=== PATIENT | female | born 1935 | race Caucasian/White ===

== ENCOUNTER 2022-05-15 02:35 | Inpatient (IN) | payer MEDICARE, OTHER ==
[2022-05-15] MEDS ORDERED: Ondansetron PF 4 MG/2 ML Vial ONE (02:47)
[2022-05-15] MEDS ORDERED: Morphine 4 MG/ML VIAL ONE (02:47)
[2022-05-15 03:20] LABS: #Eosinphils 0.1 thou/uL (0.0-0.7); #Lymphocytes 1.6 thou/uL (1.20-3.40); #Monocytes 0.9 thou/uL (0.11-0.59); #Neutrophils 10.9 thou/uL (1.40-6.50); %Basophils 0.2 % (0.0-1.0); %Lymphocytes 11.5 % (21.0-51.0); %Monocytes 6.5 % (0.0-10.0); %Neutrophils 80.8 % (42.0-75.0); Hemoglobin 14.4 g/dL (12.0-16.0); Mean Corpuscular HGB CONC 33.5 g/dL (32.0-36.0); Mean Corpuscular Hemoglobin 32.2 pg (27.0-31.0); Mean Corpuscular Volume 96.2 fL (78.0-98.0); Mean Platelet Volume 8.8 fL (7.4-10.4); Platelet Count 209 thou/uL (130-400); RBC Distribution Width 12.4 % (11.5-14.5); Red Blood Cell (RBC) Count 4.48 mill/uL (4.20-5.40); White Blood Cell (WBC) Count 13.4 thou/uL (4.8-10.8)
[2022-05-15 03:39] LABS: ALT (SGPT) 9 U/L (8-55); AST (SGOT) 17 U/L (5-34); Albumin 4.2 g/dL (3.4-4.8); Alkaline Phosphatase 85 U/L (40-110); Anion Gap 16 mmol/L (10-20); BUN (Urea Nitrogen) 29 mg/dL (9.8-20.1); Bilirubin, Total 0.8 mg/dL (0.2-1.2); Calc. Creatinine Clearance 0 mL/min (70-130); Calcium 10.7 mg/dL (7.8-10.44); Carbon Dioxide 25 mmol/L (23-31); Chloride 99 mmol/L (98-107); Estimated GFR 36; Globulin 3.6 g/dL (2.4-3.5); Glucose 168 mg/dL (83-110); Lipase 39 U/L (8-78); Potassium 4.4 mmol/L (3.5-5.1); Protein, Total 7.8 g/dL (5.8-8.1); Sodium 136 mmol/L (136-145)
[2022-05-15] MEDS ORDERED: GASTROGRAFIN 30 ML BOT ONE (08:00)
[2022-05-15] MEDS ORDERED: MD-Gastroview 120 ML BOT ONE (08:00)
[2022-05-15] MEDS ORDERED: ISOVUE-370 76%-LOCM 1 ML ONE (08:00)
[2022-05-15 08:34] VITALS: BMI 24.0
[2022-05-15] MEDS: Sodium Chloride 0.9% 1,000 ML IV SCH ×2 (08:38→17:36)
[2022-05-15] MEDS ORDERED: Morphine 2 MG/ML VIAL SLOW IVP SCH (11:15)
[2022-05-15] MEDS ORDERED: Senokot 8.6 MG TAB PO PRN (12:58)
[2022-05-15] MEDS ORDERED: Docusate 100 MG CAP PO PRN (12:59)
[2022-05-15] MEDS ORDERED: Morphine 2 MG/ML VIAL SLOW IVP PRN ×2 (13:00→22:17)
[2022-05-15] MEDS ORDERED: Enoxaparin Sodium 40 MG/0.4 ML SYRINGE SC SCH (13:45)
[2022-05-15] MEDS: Ondansetron PF 4 MG/2 ML Vial IVP PRN (14:10)
[2022-05-15 17:06] LABS: SARS-CoV-2 NAA Rapid Test Not Detected (NotDetected)
[2022-05-15] MEDS: Enalaprilat Dihydrate 1.25 MG/ML VIAL SLOW IVP SCH ×2 (17:18→23:29)
[2022-05-15 17:48] LABS: INR-International Normal Ratio 0.9; PTT 35.4 sec (22.9-36.1); Prothrombin Time 12.2 sec (12.0-14.7)
[2022-05-15] MEDS ORDERED: fentaNYL Citrate/PF 100 MCG/2 ML SYRINGE ONE ×2 (17:58→19:54)
[2022-05-15] MEDS ORDERED: CEFAZOLIN 2 GM VIAL ONE (18:51)
[2022-05-15] MEDS ORDERED: Sodium Chloride 0.9% 100 ML ONE (18:52)
[2022-05-15] MEDS ORDERED: Dexamethasone 20 MG/5 ML VIAL ONE (19:17)
[2022-05-15] MEDS ORDERED: ePHEDrine 50 MG/ML VIAL ONE (19:17)
[2022-05-15] MEDS ORDERED: PHENYLEPHRINE-NS 100 MCG/ML 10 ML SYRINGE ONE (19:17)
[2022-05-15] MEDS ORDERED: Labetalol HCl 100 MG/20 ML VIAL ONE (19:17)
[2022-05-15] MEDS ORDERED: Ketorolac Tromethamine 30 MG/ML VIAL ONE (19:17)
[2022-05-15] MEDS ORDERED: Rocuronium Bromide 10 MG/ML (10ML VIAL) ONE (19:17)
[2022-05-15] MEDS ORDERED: PROPOFOL 200 MG/20 ML VIAL ONE (19:17)
[2022-05-15] MEDS ORDERED: Lidocaine 1% PF 5 ML VIAL ONE (19:17)
[2022-05-15] MEDS ORDERED: Succinylcholine 200 MG/10 ml SYRINGE FS ONE (19:17)
[2022-05-15] MEDS ORDERED: Glycopyrrolate 0.2 MG/ML 5 ML SYRINGE ONE (19:17)
[2022-05-15] MEDS ORDERED: Amlodipine 10 MG TAB PO SCH (19:30)
[2022-05-15] MEDS ORDERED: Ondansetron HCl/PF 4 MG/2 ML Vial IVP PRN (19:37)
[2022-05-15] MEDS ORDERED: Promethazine HCl 25 MG/ML VIAL IVPB PRN (19:37)
[2022-05-15] MEDS ORDERED: Promethazine HCl 25 MG/ML VIAL IM PRN ×2 (19:37→19:38)
[2022-05-15] MEDS ORDERED: diphenhydrAMINE 50 MG/ML VIAL IM PRN (19:38)
[2022-05-15] MEDS ORDERED: Naloxone HCl 0.4 mg/ml Vial IV PRN (19:38)
[2022-05-15] MEDS ORDERED: Zolpidem Tartrate 5 MG TAB PO PRN (19:38)
[2022-05-15] MEDS ORDERED: diphenhydrAMINE 25 MG CAP PO PRN (19:38)
[2022-05-15] MEDS ORDERED: diphenhydrAMINE 50 MG/ML VIAL IVP PRN (19:38)
[2022-05-15] MEDS ORDERED: fentaNYL Citrate/PF 2,000 MCG in Sodium Chloride 0.9% 60 ML IV PRN (19:38)
[2022-05-15] MEDS ORDERED: Communication Order-Pharmacy FS SCH (19:45)
[2022-05-15] MEDS: Acetaminophen 500 MG TAB PO SCH (23:29)
[2022-05-16] MEDS: Lactated Ringer's 1,000 ML IV SCH ×3 (02:35→22:01)
[2022-05-16 03:59] LABS: #Lymphocytes 0.7 thou/uL (1.20-3.40); #Monocytes 0.7 thou/uL (0.11-0.59); #Neutrophils 13.9 thou/uL (1.40-6.50); %Eosinophils 0.1 % (0.0-10.0); %Lymphocytes 4.7 % (21.0-51.0); %Monocytes 4.8 % (0.0-10.0); %Neutrophils 90.3 % (42.0-75.0); Hemoglobin 13.5 g/dL (12.0-16.0); Mean Corpuscular HGB CONC 34.8 g/dL (32.0-36.0); Mean Corpuscular Hemoglobin 33.6 pg (27.0-31.0); Mean Corpuscular Volume 96.5 fL (78.0-98.0); Mean Platelet Volume 8.8 fL (7.4-10.4); Platelet Count 182 thou/uL (130-400); RBC Distribution Width 12.6 % (11.5-14.5); Red Blood Cell (RBC) Count 4.02 mill/uL (4.20-5.40); White Blood Cell (WBC) Count 15.3 thou/uL (4.8-10.8)
[2022-05-16 04:18] LABS: Anion Gap 17 mmol/L (10-20); BUN (Urea Nitrogen) 28 mg/dL (9.8-20.1); Calc. Creatinine Clearance 30 mL/min (70-130); Calcium 9.4 mg/dL (7.8-10.44); Carbon Dioxide 24 mmol/L (23-31); Chloride 105 mmol/L (98-107); Estimated GFR 31; Glucose 221 mg/dL (83-110); Magnesium 2.5 mg/dL (1.6-2.6); Phosphorus 4.2 mg/dL (2.3-4.7); Potassium 4.1 mmol/L (3.5-5.1); Sodium 142 mmol/L (136-145)
[2022-05-16] MEDS: Acetaminophen 500 MG TAB PO SCH ×4 (05:29→23:50)
[2022-05-16] MEDS: Enalaprilat Dihydrate 1.25 MG/ML VIAL SLOW IVP SCH ×4 (05:29→18:46)
[2022-05-16] MEDS ORDERED: Amlodipine 10 MG TAB PO SCH (09:00)
[2022-05-16] MEDS ORDERED: Enoxaparin Sodium 40 MG/0.4 ML SYRINGE SC SCH (09:00)
[2022-05-16] MEDS ORDERED: Losartan 25 MG TAB PO SCH (09:00)
[2022-05-16] MEDS ORDERED: Dextrose 5% in Water 1,000 ML IV PRN (09:13)
[2022-05-16] MEDS ORDERED: HumaLOG 300 UNITS/3 ML VIAL SC PRN ×2 (09:13)
[2022-05-16] MEDS ORDERED: Dextrose 50% Abboject 50 ML SYRINGE SLOW IVP PRN (09:13)
[2022-05-16] MEDS ORDERED: Enoxaparin Sodium 30 MG/0.3 ML SYRINGE SC SCH (09:15)
[2022-05-16] MEDS ORDERED: Polyvinyl Alcohol 1.4%/Povidone 0.6% Opth Drops EA EYE PRN ×2 (09:33→10:16)
[2022-05-16 09:59] LABS: Hemoglobin A1c 6.2 % (4.0-6.0)
[2022-05-16] MEDS: Famotidine/PF 20 mg/2ml Vial SLOW IVP SCH (10:06)
[2022-05-16] MEDS: Triamterene/Hydrochlorothiazide 37.5 mg/25 mg Tablet PO SCH (10:36)
[2022-05-16] MEDS: Ondansetron PF 4 MG/2 ML Vial IVP PRN (10:41)
[2022-05-16] MEDS: GoLYTELY 4,000 ml Bottle PER TUBE SCH ×9 (13:00→22:02)
[2022-05-16] MEDS ORDERED: Acetaminophen 500 MG TAB PO PRN (18:37)
[2022-05-16] MEDS ORDERED: traMADol HCl 50 MG TAB PO PRN ×2 (20:08)
[2022-05-16] MEDS: Heparin 5,000 UNITS/ML VIAL SC SCH (20:29)
[2022-05-17] MEDS: GoLYTELY 4,000 ml Bottle PER TUBE SCH ×23 (00:55→23:10)
[2022-05-17] MEDS: Enalaprilat Dihydrate 1.25 MG/ML VIAL SLOW IVP SCH (00:57)
[2022-05-17] MEDS: Acetaminophen 500 MG TAB PO SCH ×3 (05:26→18:03)
[2022-05-17 05:41] LABS: #Eosinphils 0.1 thou/uL (0.0-0.7); #Lymphocytes 1.5 thou/uL (1.20-3.40); #Monocytes 1.1 thou/uL (0.11-0.59); #Neutrophils 9.6 thou/uL (1.40-6.50); %Basophils 0.3 % (0.0-1.0); %Eosinophils 0.8 % (0.0-10.0); %Lymphocytes 12.2 % (21.0-51.0); %Monocytes 8.5 % (0.0-10.0); %Neutrophils 78.1 % (42.0-75.0); Hemoglobin 12.2 g/dL (12.0-16.0); Mean Corpuscular HGB CONC 34.5 g/dL (32.0-36.0); Mean Corpuscular Hemoglobin 33.7 pg (27.0-31.0); Mean Corpuscular Volume 97.8 fL (78.0-98.0); Mean Platelet Volume 8.9 fL (7.4-10.4); Platelet Count 177 thou/uL (130-400); RBC Distribution Width 12.7 % (11.5-14.5); White Blood Cell (WBC) Count 12.3 thou/uL (4.8-10.8)
[2022-05-17 06:41] LABS: Anion Gap 12 mmol/L (10-20); BUN (Urea Nitrogen) 29 mg/dL (9.8-20.1); Calc. Creatinine Clearance 50 mL/min (70-130); Calcium 9.3 mg/dL (7.8-10.44); Carbon Dioxide 26 mmol/L (23-31); Chloride 103 mmol/L (98-107); Estimated GFR 56; Glucose 119 mg/dL (83-110); Magnesium 2.3 mg/dL (1.6-2.6); Potassium 4.2 mmol/L (3.5-5.1); Sodium 137 mmol/L (136-145)
[2022-05-17 06:42] LABS: Phosphorus 2.6 mg/dL (2.3-4.7)
[2022-05-17] MEDS: Lactated Ringer's 1,000 ML IV SCH ×2 (07:30→18:40)
[2022-05-17] MEDS ORDERED: Enoxaparin Sodium 30 MG/0.3 ML SYRINGE SC SCH (09:00)
[2022-05-17] MEDS ORDERED: Sodium Phosphate 15 MMOL in Sodium Chloride 0.9% 250 ML 250 ML IVPB SCH (09:00)
[2022-05-17] MEDS: Losartan 25 MG TAB PO SCH (09:30)
[2022-05-17] MEDS: Heparin 5,000 UNITS/ML VIAL SC SCH ×3 (09:30→19:42)
[2022-05-17] MEDS: Triamterene/Hydrochlorothiazide 37.5 mg/25 mg Tablet PO SCH (09:31)
[2022-05-17] MEDS: Amlodipine 10 MG TAB PO SCH (09:31)
[2022-05-17] MEDS ORDERED: Chloraseptic Spray 180 ml Bottle PO PRN (09:31)
[2022-05-17] MEDS: Famotidine/PF 20 mg/2ml Vial SLOW IVP SCH (09:32)
[2022-05-17] MEDS ORDERED: Morphine 2 MG/ML VIAL SLOW IVP PRN (17:43)
[2022-05-17] MEDS ORDERED: traMADol HCl 50 MG TAB PO PRN (17:45)
[2022-05-17] MEDS: traMADol HCl 50 MG TAB PO SCH (18:40)
[2022-05-17] MEDS: Ondansetron PF 4 MG/2 ML Vial IVP PRN (21:13)
[2022-05-18] MEDS: Acetaminophen 500 MG TAB PO SCH ×4 (00:20→17:01)
[2022-05-18] MEDS: traMADol HCl 50 MG TAB PO SCH ×4 (00:20→18:13)
[2022-05-18] MEDS: GoLYTELY 4,000 ml Bottle PER TUBE SCH ×10 (00:30→10:02)
[2022-05-18] MEDS: Lactated Ringer's 1,000 ML IV SCH (04:11)
[2022-05-18 05:58] LABS: #Eosinphils 0.1 thou/uL (0.0-0.7); #Lymphocytes 1.5 thou/uL (1.20-3.40); #Neutrophils 7.9 thou/uL (1.40-6.50); %Basophils 0.4 % (0.0-1.0); %Eosinophils 1.2 % (0.0-10.0); %Lymphocytes 14.4 % (21.0-51.0); %Monocytes 9.1 % (0.0-10.0); %Neutrophils 74.9 % (42.0-75.0); Hemoglobin 12.1 g/dL (12.0-16.0); Mean Corpuscular HGB CONC 32.3 g/dL (32.0-36.0); Mean Corpuscular Hemoglobin 31.9 pg (27.0-31.0); Mean Corpuscular Volume 98.8 fL (78.0-98.0); Mean Platelet Volume 8.9 fL (7.4-10.4); Platelet Count 196 thou/uL (130-400); RBC Distribution Width 12.5 % (11.5-14.5); White Blood Cell (WBC) Count 10.6 thou/uL (4.8-10.8)
[2022-05-18 06:25] LABS: Anion Gap 12 mmol/L (10-20); BUN (Urea Nitrogen) 27 mg/dL (9.8-20.1); Calc. Creatinine Clearance 55 mL/min (70-130); Calcium 9.2 mg/dL (7.8-10.44); Carbon Dioxide 27 mmol/L (23-31); Chloride 101 mmol/L (98-107); Estimated GFR 61; Glucose 119 mg/dL (83-110); Magnesium 2.1 mg/dL (1.6-2.6); Potassium 3.7 mmol/L (3.5-5.1); Sodium 136 mmol/L (136-145)
[2022-05-18] MEDS: Heparin 5,000 UNITS/ML VIAL SC SCH ×3 (08:15→20:34)
[2022-05-18] MEDS: Famotidine/PF 20 mg/2ml Vial SLOW IVP SCH (08:15)
[2022-05-18] MEDS: Losartan 25 MG TAB PO SCH (08:15)
[2022-05-18] MEDS: Triamterene/Hydrochlorothiazide 37.5 mg/25 mg Tablet PO SCH (08:16)
[2022-05-18] MEDS: Amlodipine 10 MG TAB PO SCH (08:16)
[2022-05-18] MEDS ORDERED: Potassium Phosphate 30 MMOL in Sodium Chloride 0.9% 250 ML 250 ML IVPB SCH (08:30)
[2022-05-18] MEDS: Gabapentin 100 MG CAP PO SCH (08:36)
[2022-05-18] MEDS: Famotidine 20 MG TAB PO SCH ×2 (10:01→20:33)
[2022-05-18] MEDS: Senokot S 8.6-50 MG TAB PO SCH (20:35)
[2022-05-19] MEDS: hydrALAZINE 20 MG/ML VIAL SLOW IVP PRN (00:14)
[2022-05-19] MEDS: Acetaminophen 500 MG TAB PO SCH ×5 (00:15→23:35)
[2022-05-19] MEDS: traMADol HCl 50 MG TAB PO SCH ×2 (00:16→05:44)
[2022-05-19 07:11] LABS: Anion Gap 11 mmol/L (10-20); BUN (Urea Nitrogen) 18 mg/dL (9.8-20.1); Calc. Creatinine Clearance 60 mL/min (70-130); Calcium 8.9 mg/dL (7.8-10.44); Carbon Dioxide 25 mmol/L (23-31); Chloride 102 mmol/L (98-107); Estimated GFR 69; Glucose 100 mg/dL (83-110); Magnesium 1.9 mg/dL (1.6-2.6); Phosphorus 2.3 mg/dL (2.3-4.7); Potassium 3.6 mmol/L (3.5-5.1); Sodium 134 mmol/L (136-145)
[2022-05-19] MEDS: Polyethylene Glycol 3350 17 GM Packet PO SCH (08:21)
[2022-05-19] MEDS: Losartan 25 MG TAB PO SCH (08:21)
[2022-05-19] MEDS: Triamterene/Hydrochlorothiazide 37.5 mg/25 mg Tablet PO SCH (08:21)
[2022-05-19] MEDS: Famotidine 20 MG TAB PO SCH ×2 (08:22→21:29)
[2022-05-19] MEDS: Heparin 5,000 UNITS/ML VIAL SC SCH ×3 (08:22→21:29)
[2022-05-19] MEDS: Senokot S 8.6-50 MG TAB PO SCH ×2 (08:22→21:29)
[2022-05-19] MEDS: Amlodipine 10 MG TAB PO SCH (08:22)
[2022-05-19] MEDS: Gabapentin 100 MG CAP PO SCH ×2 (08:22→11:27)
[2022-05-19] MEDS ORDERED: Pravastatin Sodium 40 MG TAB PO SCH (09:00)
[2022-05-19] MEDS ORDERED: Magnesium Citrate 300 ML BOT PO SCH (10:00)
[2022-05-19] MEDS: Sodium Chloride 0.9% 500 ML IV SCH (21:28)
[2022-05-19] MEDS: Atorvastatin Calcium 10 MG TAB PO SCH (21:29)
[2022-05-19] MEDS: Ondansetron PF 4 MG/2 ML Vial IVP PRN (23:40)
[2022-05-20] MEDS: Sodium Chloride 0.9% 500 ML IV SCH ×2 (02:33→05:41)
[2022-05-20 05:26] LABS: #Eosinphils 0.2 thou/uL (0.0-0.7); #Lymphocytes 1.6 thou/uL (1.20-3.40); #Monocytes 0.9 thou/uL (0.11-0.59); #Neutrophils 4.3 thou/uL (1.40-6.50); %Basophils 0.6 % (0.0-1.0); %Eosinophils 2.3 % (0.0-10.0); %Lymphocytes 22.9 % (21.0-51.0); %Neutrophils 61.3 % (42.0-75.0); Hemoglobin 10.9 g/dL (12.0-16.0); Mean Corpuscular HGB CONC 32.4 g/dL (32.0-36.0); Mean Corpuscular Hemoglobin 31.6 pg (27.0-31.0); Mean Corpuscular Volume 97.7 fL (78.0-98.0); Mean Platelet Volume 8.6 fL (7.4-10.4); Platelet Count 208 thou/uL (130-400); RBC Distribution Width 12.5 % (11.5-14.5); Red Blood Cell (RBC) Count 3.44 mill/uL (4.20-5.40)
[2022-05-20] MEDS: Acetaminophen 500 MG TAB PO SCH ×3 (05:39→17:07)
[2022-05-20 05:41] LABS: Anion Gap 11 mmol/L (10-20); BUN (Urea Nitrogen) 23 mg/dL (9.8-20.1); Calc. Creatinine Clearance 51 mL/min (70-130); Calcium 8.8 mg/dL (7.8-10.44); Carbon Dioxide 28 mmol/L (23-31); Chloride 100 mmol/L (98-107); Estimated GFR 57; Glucose 94 mg/dL (83-110); Potassium 3.7 mmol/L (3.5-5.1); Sodium 135 mmol/L (136-145)
[2022-05-20] MEDS ORDERED: GASTROGRAFIN 30 ML BOT ONE ×2 (08:00)
[2022-05-20] MEDS ORDERED: NIFEdipine XL 30 MG TAB PO SCH (09:00)
[2022-05-20] MEDS: Senokot S 8.6-50 MG TAB PO SCH ×2 (09:01→20:22)
[2022-05-20] MEDS: Triamterene/Hydrochlorothiazide 37.5 mg/25 mg Tablet PO SCH (09:01)
[2022-05-20] MEDS: Gabapentin 100 MG CAP PO SCH (09:02)
[2022-05-20] MEDS: Amlodipine 10 MG TAB PO SCH (09:03)
[2022-05-20] MEDS: Losartan 25 MG TAB PO SCH (09:03)
[2022-05-20] MEDS: Famotidine 20 MG TAB PO SCH ×2 (09:04→20:23)
[2022-05-20] MEDS: Polyethylene Glycol 3350 17 GM Packet PO SCH ×2 (09:05→09:07)
[2022-05-20] MEDS: Heparin 5,000 UNITS/ML VIAL SC SCH ×3 (09:05→20:23)
[2022-05-20] MEDS: hydrALAZINE 20 MG/ML VIAL SLOW IVP PRN (15:31)
[2022-05-20] MEDS: Atorvastatin Calcium 10 MG TAB PO SCH (20:22)
[2022-05-21] MEDS: Acetaminophen 500 MG TAB PO SCH ×4 (00:15→18:18)
[2022-05-21 06:42] LABS: ALT (SGPT) 57 U/L (8-55); AST (SGOT) 58 U/L (5-34); Albumin 3.2 g/dL (3.4-4.8); Alkaline Phosphatase 83 U/L (40-110); Anion Gap 14 mmol/L (10-20); BUN (Urea Nitrogen) 26 mg/dL (9.8-20.1); Bilirubin, Total 0.5 mg/dL (0.2-1.2); Calc. Creatinine Clearance 47 mL/min (70-130); Calcium 9.4 mg/dL (7.8-10.44); Carbon Dioxide 27 mmol/L (23-31); Chloride 103 mmol/L (98-107); Estimated GFR 52; Glucose 102 mg/dL (83-110); Potassium 3.5 mmol/L (3.5-5.1); Protein, Total 6.2 g/dL (5.8-8.1); Sodium 140 mmol/L (136-145)
[2022-05-21] MEDS: Amlodipine 10 MG TAB PO SCH (08:19)
[2022-05-21] MEDS: Famotidine 20 MG TAB PO SCH ×2 (08:20→20:17)
[2022-05-21] MEDS: Gabapentin 100 MG CAP PO SCH (08:21)
[2022-05-21] MEDS: Losartan 25 MG TAB PO SCH (08:22)
[2022-05-21] MEDS: Senokot S 8.6-50 MG TAB PO SCH (08:25)
[2022-05-21] MEDS: Triamterene/Hydrochlorothiazide 37.5 mg/25 mg Tablet PO SCH (08:26)
[2022-05-21] MEDS: Heparin 5,000 UNITS/ML VIAL SC SCH ×3 (08:27→20:17)
[2022-05-21] MEDS: Polyethylene Glycol 3350 17 GM Packet PO SCH (08:38)
[2022-05-21] MEDS: Atorvastatin Calcium 10 MG TAB PO SCH (20:17)
[2022-05-22] MEDS: Acetaminophen 500 MG TAB PO SCH ×3 (01:48→09:08)
[2022-05-22] MEDS: Losartan 25 MG TAB PO SCH (08:09)
[2022-05-22] MEDS: Triamterene/Hydrochlorothiazide 37.5 mg/25 mg Tablet PO SCH (08:11)
[2022-05-22 08:13] VITALS: BP 150/69; TEMP 98.3
[2022-05-22] MEDS: Gabapentin 100 MG CAP PO SCH (08:13)
[2022-05-22] MEDS: Amlodipine 10 MG TAB PO SCH (08:14)
[2022-05-22] MEDS: Heparin 5,000 UNITS/ML VIAL SC SCH (08:17)
[2022-05-22] MEDS: Famotidine 20 MG TAB PO SCH (09:11)
== END 2022-05-22 10:20 | disposition home health service (06) | DRG 330 ==
LOC: ERS 02:35 → SURG A 06:17 → IMCU/EMU 23:49 → SURG B 05-16 17:10
PROVIDERS: ADMIT Student in an Organized Health Care Education/Training Program; ATTEND Student in an Organized Health Care Education/Training Program
PROC: 0DBB0ZZ Excision of Ileum, Open Approach (ICD-10-PCS; principal; 2022-05-15)
PROC: 0WQF0ZZ Repair Abdominal Wall, Open Approach (ICD-10-PCS; 2022-05-15)
PROC: 0D1B0Z4 Bypass Ileum to Cutaneous, Open Approach (ICD-10-PCS; 2022-05-15)
PROC: 0JN80ZZ Release Abdomen Subcutaneous Tissue and Fascia, Open Approach (ICD-10-PCS; 2022-05-15)
DX: K56.50 Intestinal adhesions [bands], unspecified as to partial versus complete obstruction (principal); K43.6 Other and unspecified ventral hernia with obstruction, without gangrene; N17.9 Acute kidney failure, unspecified; K44.0 Diaphragmatic hernia with obstruction, without gangrene; J98.11 Atelectasis; Z20.822 Contact with and (suspected) exposure to COVID-19; K56.699 Other intestinal obstruction unspecified as to partial versus complete obstruction; E78.5 Hyperlipidemia, unspecified; Z66 Do not resuscitate; E78.00 Pure hypercholesterolemia, unspecified; I10 Essential (primary) hypertension; K59.00 Constipation, unspecified; E83.52 Hypercalcemia; R73.03 Prediabetes; Z60.2 Problems related to living alone; Z79.899 Other long term (current) drug therapy; Z90.49 Acquired absence of other specified parts of digestive tract; Z90.710 Acquired absence of both cervix and uterus; Z90.721 Acquired absence of ovaries, unilateral; Z87.891 Personal history of nicotine dependence
CPT/HCPCS: 36415; 36416; 71045; 74019; 74177; 74250; 80048; 80053; 83036; 83605; 83690; 83735; 84100; 85025; 85610; 85730; 86850; 86900; 86901; 88307; 96361; 96374; 96375; A4649; C1776; J0360; J0690; J1100; J1644; J1650; J1885; J2270; J2405; J2704; J3490; J7050; J7120; Q9963; Q9966; S0028; U0002